=== PATIENT | female | born 1990 | race Caucasian/White ===

== ENCOUNTER 2017-03-18 08:58 | Emergency (ER) | payer MEDICAID ==
--- NOTE | 2017-03-18 09:13 | Emergency Department Record ---
History of Present Illness - General Chief complaint: ENT Stated complaint: R EAR PAIN Time Seen by Provider: 03/18/17 09:07 Source: Patient Mode of Arrival: Ambulatory Limitations: No limitations - History of Present Illness Initial comments: The patient is here due to a few day hx of R ear pain and mild nasal congestion. She denies any ST, cough, fever, or L ear pain. The patient has a chronic problem with ear infections and has had tubes in the past. MD complaint: Ear pain Onset/Timin -: Days(s) Location: R ear Severity scale (1-10): 8 Quality: Aching Consistency: Constant Improves with: None - Related Data Previous Rx's Medication Instructions Recorded Amoxicillin/Potassium Clav 1 tab PO BID #20 tab 03/18/17 [Augmentin 875-125 Tablet] Allergies Allergy/AdvReac Type Severity Reaction Status Date / Time cefprozil [From Cefzil] Allergy Intermediate rash Verified 03/18/17 09:05 Travel Screening - Travel/Exposure Within Last 30 Days Have you traveled within the last 30 days?: No - Travel/Exposure Within Last Year Have you traveled outside the [place] in the last year?: No - Additonal Travel Details Have you been exposed to anyone with a communicable illness?: No - Travel Symptoms Symptom Screening: None Review of Systems Constitutional: Denies: Chills, Fever Eyes: Denies: Eye discharge ENT: Reports: Congestion, Ear pain Respiratory: Denies: Cough Past Medical History - SOCIAL HISTORY Smoking Status: Never smoker Alcohol Use: Rare Drug Use: None - RESPIRATORY Hx Respiratory Disorders: No - CARDIOVASCULAR Hx Cardio Disorders: No - NEURO Hx Headaches: Yes - GI Hx GI Disorders: No - Hx Genitourinary Disorders: No - ENDOCRINE Hx Endocrine Disorders: No - MUSCULOSKELETAL Hx Musculoskeletal Disorders: No - PSYCH Hx Anxiety: Yes Comment:: PTSD - HEMATOLOGY/ONCOLOGY Hx Hematology/Oncology Disorders: No Family Medical History Any Significant Family History?: Yes Hx Cancer: Mother, Grandparents Hx Diabetes: Father Physical Exam - General General Appearance: Alert, Oriented x3, Cooperative, No acute distress - Head Head exam: Atraumatic, Normocephalic, Normal inspection - Eye Eye exam: Normal appearance, PERRL, EOMI - ENT ENT exam: negative: Normal exam, TM's normal bilaterally (The R TM has distorted anatomy and signs of a purulent middle ear infection with erythema.) Throat exam: Normal inspection. negative: Tonsillar erythema, Tonsillar exudate - Neck Neck exam: Normal inspection, Full ROM. negative: Lymphadenopathy, Meningismus , Tenderness - Respiratory Respiratory exam: Normal lung sounds bilaterally. negative: Respiratory distress - Cardiovascular Cardiovascular Exam: Regular rate, Normal rhythm, Normal heart sounds Course Vital Signs 03/18/17 08:59 Temperature 99.6 F Pulse Rate 99 H Respiratory 16 Rate Blood Pressure 161/90 Pulse Ox 96 - Reevaluation(s) Reevaluation #1: I did discuss the need for the Abx with the patient and the need to keep her appointment with her PCP for Monday. 03/18/17 09:16 Disposition Disposition: Discharge Clinical Impression: Otitis media Qualifiers: Otitis media type: unspecified Chronicity: acute Qualified Code(s): H66.90 - Otitis media, unspecified, unspecified ear Disposition: Home, Self-Care Condition: (2) Stable Instructions: Otitis Media (ED) Additional Instructions: Please use Tylenol or Motrin for pain and fever. Please take the Augmentin as directed. See your PCP in 2 days as planned and return to the ER if worse. Please use OTC Flonase and a decongestant until improved. Prescriptions: Amoxicillin/Potassium Clav [Augmentin 875-125 Tablet] 1 tab PO BID #20 tab Forms: Patient Portal Access Time of Disposition: 09:13 Quality - Quality Measures Quality Measures: N/A - Blood Pressure Screening View Details: Yes Does Patient Have Any of the Following: No Blood Pressure Classification: Hypertensive Reading Systolic Measurement: 161 Diastolic Measurement: 90 Screening for High Blood Pressure: < Pre-Hypertensive BP, F/U Documented > [ [id number]] Pre-Hypertensive Follow-up Interventions: Referral to alternative/primary care provider.
== END 2017-03-18 09:21 | disposition home or self-care (01) ==
LOC: ER 08:58
DX: H66.90 Otitis media, unspecified, unspecified ear (principal)
CPT/HCPCS: 99282